=== PATIENT | female | born 1950 | race Caucasian/White ===

== ENCOUNTER 2017-11-10 15:46 | Outpatient (CLI) | payer MEDICARE, BC | END 2017-11-10 15:47 | disposition home or self-care (01) | LOC: BICMAMMO 15:46 | PROVIDERS: ATTEND Internal Medicine | DX: Z12.31 Encounter for screening mammogram for malignant neoplasm of breast (principal) | CPT/HCPCS: 77063; 77067 ==

== ENCOUNTER 2018-06-02 09:52 | Outpatient (CLI) | payer MEDICARE, BC ==
--- NOTE | 2018-06-02 10:58 | RAD ---
LUMBAR SPINE 3 VIEWS: HISTORY: Pain. Radiculopathy. COMPARISON: None. FINDINGS: There is mild dextroscoliosis centered at the L1-2 interspace. No acute fracture or malalignment. M oderate narrowing of the L5-S1 interspace. No dilated loops of large or small bowel. Paraspinal soft tissues unremarkable. IMPRESSION: Mild to moderate dextroscoliosis of the lumbar spine without acute fracture or malalignment. POS: TPC
== END 2018-06-02 09:53 | disposition home or self-care (01) ==
LOC: BICRAD 09:52
PROVIDERS: ATTEND Internal Medicine
DX: M54.16 Radiculopathy, lumbar region (principal); M54.32 Sciatica, left side; M54.31 Sciatica, right side; M41.9 Scoliosis, unspecified
CPT/HCPCS: 72100

== ENCOUNTER 2018-08-10 13:10 | Outpatient (CLI) | payer MEDICARE, BC ==
--- NOTE | 2018-08-10 15:26 | MRI ---
MRI LUMBAR SPINE WITHOUT IV CONTRAST: 08/10/2018 HISTORY: Low back pain with right radicular pain and left sciatic pain. COMPARISON: None available. FINDINGS: The retroperitoneal structures demonstrate a normal MRI appearance. There are rounded areas of increased T1 and T2 weighted signal intensity seen in the L2 and L4 verteb ral bodies, likely related to small hemangiomas. Endplate degenerative changes are seen at the L4-L5 and L5-S1 levels, and there is slight heterogeneity of the bone marrow. The conus medullaris is normal in appearance and terminates at the L1-L2 level. T12-L1: There is no disk bulge or disk herniation. The central spinal canal and neural foramina are patent. L1-L2: There is mild loss of intervertebral disk height. There is a mild broad-based disk osteophyt e complex. This results in mild effacement of the ventral aspect of the thecal sac without significa nt narrowing of the central spinal canal. The neural foramina are patent. L2-L3: There is a broad-based disk osteophyte complex and mild facet degenerative changes. This res ults in mild narrowing of the central spinal canal. The neural foramina are patent. L3-L4: There is a mild broad-based disk osteophyte complex and facet hypertrophic changes noted. Th is results in effacement of the ventral aspect of the thecal sac. The neural foramina are patent. L4-L5: There is a broad-based disk osteophyte complex. Facet hypertrophic changes and ligamentous t hickening are noted. A right paracentral disk protrusion is present, which appears to result in mass effect on the traversing right L5 nerve root. There is mild generalized narrowing of the central sp inal canal with greater mass effect at the right anterolateral aspect of the thecal sac. There is mi ld bilateral neural foraminal narrowing. L5-S1: There is loss of intervertebral disk height with broad-based disk osteophyte complex. There is no narrowing of the central spinal canal, but there is mild bilateral neural foraminal narrowing. Facet hypertrophic changes are present. IMPRESSION: 1. Degenerative changes in the lumbar spine with findings greatest at the L4-L5 level. There is dis k osteophyte complex and right paracentral disk protrusion. The paracentral disk protrusion does fidencio ear to contact and displace the traversing right L5 nerve root posteriorly. Correlation for right L5 radiculopathy is recommended. 2. Mild right convex curvature of the thoracolumbar spine. POS: ELAINE
--- NOTE | 2018-08-10 16:02 | MRI ---
MRI PELVIS WITHOUT CONTRAST: HISTORY: Back pain, pelvic pain, and left sciatic pain, M54.32, M54.16, and M54.5. COMPARISON: None. FINDINGS: Please see the lumbar spine MRI for findings of the lumbar spine. BONES: No fracture. No malalignment. No stress edema. No fluid within the SI joints. Small bilateral acetabular osteophyte formation. MUSCLES: Muscle bulk is normal bilaterally. No significant edema. No evidence for myositis. Quadratus femoris muscles are without impingement. TENDONS: There is mild bilateral gluteus medius tendinosis with partial tearing, worse on the left t haider on the right. There is also subsequent greater trochanteric bursitis, left worse than right. Mild partial tearing and tendinosis, left gluteus minimus tendon. The iliopsoas tendons are intact. INTRAPELVIC SOFT TISSUES: Moderate diverticular disease. No evidence for active inflammation. CARTILAGE: Mild chondral loss of both femoral heads and acetabulum with chondral delamination. No s ubcortical reactive marrow changes. IMPRESSION: 1. Bilateral gluteus medius tendinosis and partial tearing with greater trochanteric bursitis, left w orse than right. This can be a source of the patient's pain. 2. Normal appearance of both sciatic nerves. 3. No stress edema. POS: TPC
== END 2018-08-10 13:11 | disposition home or self-care (01) ==
LOC: BICMRI 13:10
PROVIDERS: ATTEND Internal Medicine
DX: M47.26 Other spondylosis with radiculopathy, lumbar region (principal); M54.32 Sciatica, left side; S76.012A Strain of muscle, fascia and tendon of left hip, initial encounter; S76.011A Strain of muscle, fascia and tendon of right hip, initial encounter; M70.62 Trochanteric bursitis, left hip; M70.61 Trochanteric bursitis, right hip
CPT/HCPCS: 72148; 72195

== ENCOUNTER 2018-11-11 08:53 | Outpatient (CLI) | payer MEDICARE, BC ==
--- NOTE | 2018-11-11 10:19 | MMO ---
Bilateral MAMMO Bilat Screen [facility]. CLINICAL HISTORY: Patient is 68 years old and is seen for screening. The patient has the following family history of breast cancer: maternal aunt. The patient has no personal history of cancer. The patient has a history of Excisional Biopsy - pt not sure which side but was not cancer. VIEWS: The views performed were: bilateral craniocaudal with tomosynthesis and bilateral mediolateral oblique with tomosynthesis. FILMS COMPARED: The present examination has been compared to prior imaging studies performed at [facility] on 04/23/2017 and 11/10/2017, and at [facility] on 09/24/2016 and 10/01/2016. MAMMOGRAM FINDINGS: There are scattered fibroglandular densities. There are benign appearing calcifications seen in the left breast. There are no suspicious masses, suspicious calcifications, or new areas of architectural distortion. IMPRESSION: THERE IS NO MAMMOGRAPHIC EVIDENCE OF MALIGNANCY. A ROUTINE FOLLOW-UP MAMMOGRAM IN 1 YEAR IS RECOMMENDED. THE RESULTS OF THIS EXAM WERE SENT TO THE PATIENT. ACR BI-RADS Category 2 - Benign finding MAMMOGRAPHY NOTE: 1. A negative mammogram report should not delay a biopsy if a dominant of clinically suspicious mass is present. 2. Approximately 10% to 15% of breast cancers are not detected by mammography. 3. Adenosis and dense breasts may obscure an underlying neoplasm.
--- NOTE | 2018-11-11 11:09 | BD ---
BONE DENSITOMETRY USING DEXA: HISTORY: Postmenopausal screening for osteoporosis. FINDINGS: Lumbar Spine: BMD (g/cm2) L1 0.908 T-Score: -0.7 Z-Score: 1.2 L2 0.985 T-Score: -0.4 Z-Score: 1.7 L3 1.050 T-Score: -0.3 Z-Score: 1.9 L4 1.017 T-Score: -0.4 Z-Score: 1.9 L1-L4 0.992 T-Score: -0.5 Z-Score: 1.6 Femoral Neck: 0.726 T-Score: -1.1 Z-Score: 0.7 Total Femur: 0.949 T-Score: 0.1 Z-Score: 1.6 The 10-year fracture risk for a major osteoporotic fracture is 9.1% and for a hip fracture 1%. Impression: Osteopenia. POS: ELAINE
== END 2018-11-11 08:54 | disposition home or self-care (01) ==
LOC: BICMAMMO 08:53
PROVIDERS: ATTEND Obstetrics & Gynecology
DX: Z12.31 Encounter for screening mammogram for malignant neoplasm of breast (principal); Z13.820 Encounter for screening for osteoporosis; M81.0 Age-related osteoporosis without current pathological fracture; M85.859 Other specified disorders of bone density and structure, unspecified thigh; Z98.890 Other specified postprocedural states; Z80.3 Family history of malignant neoplasm of breast
CPT/HCPCS: 77063; 77067; 77080

== ENCOUNTER 2019-01-31 13:36 | Outpatient (CLI) | payer MEDICARE, BC ==
--- NOTE | 2019-01-31 14:03 | RAD ---
EXAM: XR Lumbar Spine Min 4 View PROVIDED CLINICAL HISTORY: Back pain COMPARISON: 06/02/2018 FINDINGS: 5 nonrib-bearing lumbar-type vertebral bodies are redemonstrated. Right convexity curvature of the lo wer thoracic and upper lumbar spine redemonstrated. Sagittal lumbar alignment appears normal. There is no evidence for abnormal translational motion with flexion and extension. Vertebral body heights a ppear preserved. Pedicles appear intact. Lower lumbar spine facet degenerative changes are seen. IMPRESSION: Lower lumbar spine facet degenerative change.
== END 2019-01-31 13:37 | disposition home or self-care (01) ==
LOC: TBSIIMAG 13:36
PROVIDERS: ATTEND Surgery
DX: M54.5 Low back pain (principal); M47.816 Spondylosis without myelopathy or radiculopathy, lumbar region
CPT/HCPCS: 72110

== ENCOUNTER 2019-11-08 12:33 | Outpatient (CLI) | payer MEDICARE, BC ==
--- NOTE | 2019-11-08 16:00 | MRI ---
MRI RIGHT SHOULDER WITHOUT CONTRAST: 11/08/19 HISTORY: Shoulder pain. M25.511. COMPARISON: None. FINDINGS: BICEPS TENDON: Mild extra-articular biceps tenosynovitis. Intra-articular tendon is attenuated with interstitial tea ring. Mild intra-articular tendinosis. No significant perching. LABRUM: There is tearing throughout the superior labrum anterior-posterior to the biceps labral expansion. Mi ldly hypertrophied posterior inferior labrum. ROTATOR CUFF: There is a high grade 50-60% undersurface tearing of the subscapularis superior fibers. 40-50% bursal surface tearing of the supraspinatus tendon. 20-30% bursal surface tearing infraspinatus tendon. No full thickness perforation is appreciated. BONES: Mild glenoid dysplasia. Mild degenerative disease of the acromioclavicular joint, age appropriate. Mo derate lateral downsloping of the acromion and narrowing of the subacromial space. MUSCLES: No significant muscle atrophy. IMPRESSION: 1. 40-50% bursal surface partial tearing throughout the supraspinatus tendon with inherent tendi nosis and no full thickness perforation. 2. 20-30% bursal surface partial tearing of the infraspinatus tendon. 3. Lateral downsloping of the acromion with narrowing of the subacromial space can be a source o f external impingement. 4. 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 5. Intrasubstance tearing throughout the superior labrum. 6. Low grade posterior inferior glenoid chondral fraying without full thickness defects. Subcor tical cysts due to the infraspinatus tendon insertion humeral head indicative of internal impingement . 7. High grade 50-60 deep fiber tearing subscapularis tendon. POS: HOME
== END 2019-11-08 12:34 | disposition home or self-care (01) ==
LOC: BICMRI 12:33
PROVIDERS: ATTEND Orthopaedic Surgery
DX: M25.511 Pain in right shoulder (principal); M75.111 Incomplete rotator cuff tear or rupture of right shoulder, not specified as traumatic; S43.431A Superior glenoid labrum lesion of right shoulder, initial encounter; M25.861 Other specified joint disorders, right knee

== ENCOUNTER 2019-11-15 13:21 | Outpatient (CLI) | payer MEDICARE, BC ==
--- NOTE | 2019-11-15 15:32 | MMO ---
Bilateral MAMMO Bilat Screen [facility]. CLINICAL HISTORY: Patient is 69 years old and is seen for screening. The patient has the following family history of breast cancer: maternal aunt. The patient has no personal history of cancer. The patient has a history of Excisional Biopsy - pt not sure which side but was not cancer. VIEWS: The views performed were: bilateral craniocaudal with tomosynthesis and bilateral mediolateral oblique with tomosynthesis. FILMS COMPARED: The present examination has been compared to prior imaging studies performed at [facility] on 04/23/2017, 11/10/2017 and 11/11/2018, and at [facility] on 10/01/2016. This study has been interpreted with the assistance of computer-aided detection. MAMMOGRAM FINDINGS: There are scattered fibroglandular densities. There are stable calcifications seen in both breasts. There are no suspicious masses, suspicious calcifications, or new areas of architectural distortion. IMPRESSION: THERE IS NO MAMMOGRAPHIC EVIDENCE OF MALIGNANCY. A ROUTINE FOLLOW-UP MAMMOGRAM IN 1 YEAR IS RECOMMENDED. THE RESULTS OF THIS EXAM WERE SENT TO THE PATIENT. ACR BI-RADS Category 2 - Benign finding MAMMOGRAPHY NOTE: 1. A negative mammogram report should not delay a biopsy if a dominant of clinically suspicious mass is present. 2. Approximately 10% to 15% of breast cancers are not detected by mammography. 3. Adenosis and dense breasts may obscure an underlying neoplasm. Reported by: JAS JOSEPH MD Electonically Signed: [id number]
== END 2019-11-15 13:22 | disposition home or self-care (01) ==
LOC: BICMAMMO 13:21
PROVIDERS: ATTEND Internal Medicine
DX: Z12.31 Encounter for screening mammogram for malignant neoplasm of breast (principal); Z80.3 Family history of malignant neoplasm of breast; Z98.890 Other specified postprocedural states
CPT/HCPCS: 77063; 77067

== ENCOUNTER 2020-06-05 08:11 | Outpatient (CLI) | payer MEDICARE, BC ==
[2020-06-05] MEDS ORDERED: Magnevist 469MG/ML 20 ML VIAL ONE (09:56)
--- NOTE | 2020-06-05 10:20 | MRI ---
MRI ABDOMEN WITH AND WITHOUT IV CONTRAST: Date: 06/05/2020 HISTORY: Abnormal CT scan of 04/27/2020. Lesion of liver. FINDINGS: Correlation made with CT scan of 04/27/2020. The scattered subcentimeter hypodense lesions in the liver noted on the CT scan demonstrate low T1 an d high T2 signal and no postcontrast enhancement, and are consistent with cysts. The spleen, pancreas , adrenal glands, and kidneys are normal. No free fluid or lymphadenopathy is seen. The gallbladder i s normal. No abnormal biliary ductal dilatation is seen. No free fluid or lymphadenopathy is noted. T here is no evidence of aneurysmal dilatation of the abdominal aorta. Bone marrow signal is normal. IMPRESSION: Tiny hepatic cysts. POS: OFF
== END 2020-06-05 08:12 | disposition home or self-care (01) ==
LOC: BICMRI 08:11
PROVIDERS: ATTEND Internal Medicine Gastroenterology
DX: K76.9 Liver disease, unspecified (principal); K76.89 Other specified diseases of liver
CPT/HCPCS: 74183; 82565; A9579

== ENCOUNTER 2020-11-16 09:59 | Outpatient (CLI) | payer MEDICARE, BC | END 2020-11-16 10:00 | disposition home or self-care (01) | LOC: BICMAMMO 09:59 | PROVIDERS: ATTEND Internal Medicine | DX: Z12.31 Encounter for screening mammogram for malignant neoplasm of breast (principal); Z80.3 Family history of malignant neoplasm of breast | CPT/HCPCS: 77063; 77067 ==

== ENCOUNTER 2021-11-19 08:25 | Outpatient (CLI) | payer MEDICARE, BC | END 2021-11-19 08:26 | disposition home or self-care (01) | LOC: BICMAMMO 08:25 | PROVIDERS: ATTEND Internal Medicine | DX: Z12.31 Encounter for screening mammogram for malignant neoplasm of breast (principal); Z80.3 Family history of malignant neoplasm of breast | CPT/HCPCS: 77063; 77067 ==

== ENCOUNTER 2024-01-11 10:50 | Outpatient (CLI) | payer MEDICARE | END 2024-01-11 10:51 | disposition home or self-care (01) | LOC: BICMAMMO 10:50 | PROVIDERS: ATTEND Internal Medicine | DX: Z12.31 Encounter for screening mammogram for malignant neoplasm of breast (principal); Z80.3 Family history of malignant neoplasm of breast; Z91.89 Other specified personal risk factors, not elsewhere classified | CPT/HCPCS: 77063; 77067 ==

== ENCOUNTER 2025-02-06 09:24 | Outpatient (CLI) | payer MEDICARE | END 2025-02-06 09:25 | disposition home or self-care (01) | LOC: BICMAMMO 09:24 | PROVIDERS: ATTEND Internal Medicine | DX: Z12.31 Encounter for screening mammogram for malignant neoplasm of breast (principal); Z80.3 Family history of malignant neoplasm of breast; Z91.89 Other specified personal risk factors, not elsewhere classified | CPT/HCPCS: 77063; 77067 ==